=== PATIENT | female | born 1945 | race Caucasian/White ===

== ENCOUNTER → 2017-08-03 | Outpatient (CLI) | payer MEDICARE, BC ==
[~2017-08-03] MED LIST: ALBUTEROL1.25 MG/3 IH; CALCIUM 600600 M2 PO; DEMADEX 20MG20 M1 PO; HYGROTON 2525 MG/TAB PO; IRON325 MG PO; LEVAQUIN 7750 MG/151 IV; LOTENSIN20 MG PO; MAXIPIME1 GM IV; NORVASC 10MG10 MG PO; PRIL40 PO; TYLENOL PM EXTR1 TA1 PO; [UNRECOGNIZED DRUG - OTHER]
== END ==
LOC: MC.RAD 13:50
DX: Z12.31 Encounter for screening mammogram for malignant neoplasm of breast (principal)

== ENCOUNTER → 2018-10-03 | Outpatient (CLI) | payer MEDICARE, BC | LOC: MC.RAD 13:11 | DX: Z12.31 Encounter for screening mammogram for malignant neoplasm of breast (principal); Z98.890 Other specified postprocedural states ==

== ENCOUNTER → 2019-11-05 | Outpatient (CLI) | payer MEDICARE, BC | LOC: MC.RAD 09:50 | DX: Z12.31 Encounter for screening mammogram for malignant neoplasm of breast (principal); N63.20 Unspecified lump in the left breast, unspecified quadrant; Z98.890 Other specified postprocedural states ==

== ENCOUNTER → 2019-11-11 | Outpatient (CLI) | payer MEDICARE, BC | LOC: MC.RAD 10:39 | DX: N63.22 Unspecified lump in the left breast, upper inner quadrant (principal) ==

== ENCOUNTER → 2019-11-18 | Outpatient (CLI) | payer MEDICARE, BC | LOC: MC.RAD 10:27 | DX: N64.1 Fat necrosis of breast (principal); R92.0 Mammographic microcalcification found on diagnostic imaging of breast; N63.22 Unspecified lump in the left breast, upper inner quadrant; Z85.3 Personal history of malignant neoplasm of breast; Z98.890 Other specified postprocedural states; Z92.3 Personal history of irradiation ==

== ENCOUNTER → 2020-11-18 | Outpatient (CLI) | payer MEDICARE, BC | LOC: MC.RAD 11-06 13:00 | DX: Z12.31 Encounter for screening mammogram for malignant neoplasm of breast (principal) ==

== ENCOUNTER → 2021-12-17 | Outpatient (CLI) | payer MEDICARE, BC | LOC: MC.RAD 13:15 | DX: Z12.31 Encounter for screening mammogram for malignant neoplasm of breast (principal) ==

== ENCOUNTER 2022-01-20 07:27 | Outpatient (CLI) | payer MEDICARE, BC ==
[~2022-01-20] VITALS: Ht 147.3 cm; Wt 75.5 kg
[2022-01-20] MEDS ORDERED: DEMADEX 20MG20 M1 PO (07:52)
[2022-01-20] MEDS ORDERED: CALCIUM 600600 MG PO (07:53)
[2022-01-20] MEDS ORDERED: VITAMIND3 5000 PO (07:53)
[2022-01-20] MEDS ORDERED: COREG 25MG25 MG/TAB PO (07:54)
[2022-01-20] MEDS ORDERED: LOTENSIN20 MG PO (07:54)
[2022-01-20] MEDS ORDERED: PRIL40 PO (07:55)
[2022-01-20] MEDS ORDERED: MAG-OX 400400 MG/TAB PO (07:56)
[2022-01-20] MEDS ORDERED: NATURAL POTASS595 MG PO (07:56)
[2022-01-20] MEDS ORDERED: MELATONIN5 M1 PO (07:57)
[2022-01-20 08:11] VITALS: BP 130/56; PULSE 72; TEMP 97.3
[2022-01-20 09:40] VITALS: BP 136/71; PULSE 72; TEMP 97.7
--- NOTE | 2022-01-20 09:40 | NUR ---
Patient arrived back into bay 1 from ambulatory procedure room. Report recieved from SHERLY Herrera. Patient is alert and oriented x4. Reports no pain or SOB. Vital signs stable on room air. wireless field technician notified of urgent chest xray needed for patient. Patient requesting blueberry muffin, diet pepsi, and a cup of ice.
--- NOTE | 2022-01-20 09:45 | NUR ---
valve technician here to get chest xray.
[2022-01-20 09:55] VITALS: BP 130/72; PULSE 78
--- NOTE | 2022-01-20 10:00 | NUR ---
Patient doing well. Tolerating food and drink. Denies pain or nausea at this time.
[2022-01-20 10:10] VITALS: BP 134/74; PULSE 81
--- NOTE | 2022-01-20 10:10 | NUR ---
Notified Dr. Saha that xray was completed. Dr. Saha gave order to for discharge. Went through discharge instructions with patient and . Questions answered. Verbalized understanding to education. Patient got dressed with assistance of and was escorted to patient entrance via wheel chair. Patient got into personal vehicle driven by and left in the care of her .
[2022-01-20 10:25] LABS: PLEURAL FLUID RBC 0 /mm3 (0-0); PLEURAL FLUID WBC 440 /mm3
[2022-01-20 10:29] LABS: PLEURAL FLUID APPEARANCE CLEAR; PLEURAL FLUID COLOR YELLOW
[2022-01-20 21:50] LABS: BODY FLUID PH (AMS) 8 (())
== END 2022-01-20 10:15 | disposition home or self-care (01) ==
LOC: SDCO 07:27
PROVIDERS: Internal Medicine Pulmonary Disease
DX: J90 Pleural effusion, not elsewhere classified (principal); R06.02 Shortness of breath; I10 Essential (primary) hypertension; Z85.3 Personal history of malignant neoplasm of breast; Z79.899 Other long term (current) drug therapy; Z83.3 Family history of diabetes mellitus
CPT/HCPCS: 19804

== ENCOUNTER 2022-03-28 20:00 | Emergency (ER) | payer MEDICARE, BC ==
[~2022-03-28] VITALS: Ht 147.3 cm; Wt 71.4 kg
[~2022-03-28 20:00] MED LIST changes: +CALCIUM 600600 MG PO; +COREG 25MG25 MG/TAB PO; +MAG-OX 400400 MG/TAB PO; +MELATONIN5 M1 PO; +NATURAL POTASS595 MG PO; +VITAMIND3 5000 PO
[2022-03-28 20:08] VITALS: TEMP 98.3
[2022-03-28] MEDS ORDERED: NORCO 325 MG-51 TAB PO (21:38)
[2022-03-28 22:05] VITALS: BP 150/77; PULSE 78
== END 2022-03-28 22:05 | disposition home or self-care (01) ==
LOC: COL.ER 20:00
DX: S52.502A Unspecified fracture of the lower end of left radius, initial encounter for closed fracture (principal); S52.612A Displaced fracture of left ulna styloid process, initial encounter for closed fracture; W01.0XXA Fall on same level from slipping, tripping and stumbling without subsequent striking against object, initial encounter
CPT/HCPCS: J3010

== ENCOUNTER 2022-03-30 10:27 | Day surgery (SDC) | payer MEDICARE, BC ==
[~2022-03-30] VITALS: Ht 149.9 cm; Wt 70.8 kg
[~2022-03-30 10:27] MED LIST changes: +NORCO 325 MG-51 TAB PO
[2022-03-30 11:19] VITALS: BP 132/56; PULSE 95; TEMP 98.2
[2022-03-30] MEDS ORDERED: BENICAR HCT 251 TAB PO (11:31)
--- NOTE | 2022-03-30 12:40 | NUR ---
Initial visit; Patient thanked Or Assistant for offering encouragement, God's blessings and prayer prior to her surgical procedure.
[2022-03-30 14:25] VITALS: BP 131/63; PULSE 91; TEMP 97.6
--- NOTE | 2022-03-30 14:25 | NUR ---
PT TO BAY 6 PER CART FROM PACU. RECEIVED REPORT. PT TOLERATING ICE CHIPS AND DIET PEPSI. PT DENIES ANY OTHER NEEDS AT THIS TIME. WILL CONTINUE TO MONITOR.
[2022-03-30 14:40] VITALS: BP 132/53; PULSE 91
--- NOTE | 2022-03-30 14:40 | NUR ---
PT CONTINUES TO DENY ANY DISCOMFORT OR PAIN. PT RESTING COMFORTABLY. DENIES ANY NEEDS AT THIS TIME.
[2022-03-30 14:42] VITALS: TEMP 98.1
[2022-03-30 14:55] VITALS: BP 130/68; PULSE 88
--- NOTE | 2022-03-30 14:55 | NUR ---
PT CONTINUES TO DENY ANY NEEDS AND STATES SHE IS READY FOR DISCHARGE.
--- NOTE | 2022-03-30 15:00 | NUR ---
IV DC'D. PT TOLERATED WELL.
--- NOTE | 2022-03-30 15:25 | NUR ---
DISCHARGE EDUCATION COMPLETED WITH PT AND HER . VERBALIZED UNDERSTANDING OF HOME AND FOLLOW UP CARE. ALL QUESTIONS ANSWERED. DISCHARGE PAPERWORK GIVEN TO PT.
--- NOTE | 2022-03-30 15:35 | NUR ---
PT OFF UNIT PER WHEELCHAIR. PT DC TO HOME WITH PER PERSONAL VEHICLE.
== END 2022-03-30 15:35 | disposition home or self-care (01) ==
LOC: SDCO 10:27
DX: S52.572A Other intraarticular fracture of lower end of left radius, initial encounter for closed fracture (principal); S52.612A Displaced fracture of left ulna styloid process, initial encounter for closed fracture
CPT/HCPCS: C1713; J0171; J0690; J1100; J2250; J2405; J2704; J2795; J3010; J7120

== ENCOUNTER → 2023-01-09 | Outpatient (CLI) | payer MEDICARE, BC ==
[~2023-01-09] MED LIST changes: +BENICAR HCT 251 TAB PO
== END ==
LOC: MC.RAD 11:28
DX: Z12.31 Encounter for screening mammogram for malignant neoplasm of breast (principal)

== ENCOUNTER → 2023-02-14 | Outpatient (CLI) | payer MEDICARE, BC | LOC: COL.RAD 13:22 | DX: K44.9 Diaphragmatic hernia without obstruction or gangrene (principal); D71 Functional disorders of polymorphonuclear neutrophils; I51.7 Cardiomegaly; J90 Pleural effusion, not elsewhere classified; J98.11 Atelectasis; J38.01 Paralysis of vocal cords and larynx, unilateral; Z98.890 Other specified postprocedural states | CPT/HCPCS: Q9967 ==

== ENCOUNTER 2023-09-26 06:41 | Outpatient (CLI) | payer MEDICARE, BC ==
[~2023-09-26] VITALS: Ht 149.9 cm; Wt 73.0 kg
[2023-09-26 08:40] VITALS: BP 151/69; PULSE 100; TEMP 98
[2023-09-26 09:20] VITALS: BP 154/63; PULSE 99; TEMP 98.1
[2023-09-26 09:45] VITALS: BP 138/56; PULSE 92
[2023-09-26 10:24] VITALS: BP 154/63; PULSE 98
[2023-09-26 10:42] LABS: PLEURAL FLUID RBC 1000 /mm3 (0-0); PLEURAL FLUID WBC 312 /mm3
--- NOTE | 2023-09-26 10:51 | NUR ---
0920 Pt returned to bay 7, post procedure. Received report from SHERLY Montanez. Pt is alert and oriented, breathing even and unlabored. Vital signs wnl, pt denies pain sx. Post procedure x-ray completed and resulted. [id number] Pt given orange juice and a blueberry muffin as PO challenge. Tolerated well. 1017 Physician discharge instructions and patient educational materials reviewed w/ pt and her . Questions invited and answered. 1025 Pt to lobby via wheel chair for ride home with in POV.
[2023-09-26 11:00] LABS: PLEURAL FLUID APPEARANCE CLEAR; PLEURAL FLUID COLOR YELLOW
== END 2023-09-26 10:25 | disposition home or self-care (01) ==
LOC: SDCO 06:41
PROVIDERS: Internal Medicine Pulmonary Disease
DX: J90 Pleural effusion, not elsewhere classified (principal); I27.20 Pulmonary hypertension, unspecified; Z85.3 Personal history of malignant neoplasm of breast
CPT/HCPCS: 19804

== ENCOUNTER → 2023-11-22 | Outpatient (CLI) | payer MEDICARE, BC | LOC: COL.VAS 10:13 | DX: I08.3 Combined rheumatic disorders of mitral, aortic and tricuspid valves (principal); I27.20 Pulmonary hypertension, unspecified | CPT/HCPCS: Q9967 ==